=== PATIENT | female | born 1945 | race Caucasian/White ===

== ENCOUNTER 2020-07-11 09:52 | Emergency (ER) | payer MEDICARE, SELFPAY ==
--- NOTE | ~2020-07-11 | XR_ITS ---
EXAMINATION: XR chest 2V EXAM DATE: 07/11/2020 10:50 INDICATION: Confusion. TECHNIQUE: Portable AP frontal chest x-ray was obtained. Comparison is made to prior examination from 06/17/2019. FINDINGS: Chronic hyperinflation. The lungs are clear. There are no pleural effusions. The cardiome diastinal silhouette is within normal limits. There is no pneumothorax suspected. Midthoracic chron ic mild to moderate compression fracture. Severe thoracolumbar scoliosis. Old right rib fractures. Th ere is no significant interval change. IMPRESSION: No acute cardiopulmonary findings. Reviewed, dictated and finalized at location A. DENT SURGEON
[2020-07-11 10:40] LABS: Basophils Absolute Auto 0.02 K/mm3 (0.00-0.10); Basophils Percent Auto 0.3 % (0.0-1.0); Hematocrit 34.1 % (35.0-42.0); Immature Granulocyte Absolute 0.04 K/mm3 (0.00-0.00); Immature Granulocyte Percent A 0.7 % (0.0-0.0); Lymphocytes Absolute Auto 1.17 K/mm3 (1.10-4.50); Lymphocytes Percent Auto 19.9 % (18.0-42.0); Mean Corpuscular HGB Conc 32.3 g/dL (32.0-36.0); Mean Corpuscular Hemoglobin 26.6 pg (27.0-31.0); Mean Corpuscular Volume 82.4 fL (78.0-102.0); Mean Platelet Volume 8.1 fl (9.2-11.8); Monocytes Absolute Auto 0.38 K/mm3 (0.10-0.90); Monocytes Percent Auto 6.5 % (2.0-11.0); Neutrophils Absolute Auto 4.3 K/mm3 (1.7-7.2); Neutrophils Percent Auto 72.6 % (50.0-70.0); Platelet Count Result 311 K/mm3 (150-420); Red Blood Count 4.14 M/mm3 (4.20-5.40); Red Cell Distribution Width 14.7 % (11.6-14.4); White Blood Count 5.9 K/mm3 (4.8-10.8)
[2020-07-11 10:42] LABS: Add Urine Microscopic? YES; Appearance Urine Cloudy (Clear); Bilirubin Urine Negative (Negative); Blood Urine 2+ (Negative); Color Urine Yellow (Yellow); Glucose Urine UA Negative (Negative); Ketones Urine Negative (Negative); Leukocyte Esterase Ur 2+ (Negative); Nitrate Urine Positive (Negative); Protein Urine 2+ (Negative); Specific Grav Ur 1.025 (1.010-1.020); Urobilinogen Urine 0.2 mg/dL (0.2-1.0)
[2020-07-11 10:46] LABS: Bacteria Urine 1+ /hpf; RBC Urine None seen /hpf (0-2); Squamous Epithelial Cell Urine Rare /hpf (Few); WBC Urine >75 /hpf (0-3)
[2020-07-11 10:56] LABS: Alanine Aminotransferase 16 U/L (14-59); Albumin Level 3.6 g/dL (3.4-5.0); Alkaline Phosphatase 88 U/L (46-116); Anion Gap 12 mmol/L (8-16); Aspartate Amino Transferase 20 U/L (15-37); Bilirubin,Total 0.4 mg/dL (0.00-1.00); Blood Urea Nitrogen 17 mg/dL (7-18); Calcium 8.9 mg/dL (8.5-10.1); Carbon Dioxide 25 mmol/L (21-32); Chloride 103 mmol/L (98-108); Estimated Glomerular Filt Rate 56; Glucose 108 mg/dL (70-99); Osmolality Calculated 292 mOsm/kg (285-295); Potassium 3.6 mmol/L (3.5-5.1); Sodium 140 mmol/L (136-145); Total Protein 6.6 g/dL (6.4-8.2)
[2020-07-11 11:17] VITALS: BP 101/60; PULSE 66; RESP 16; TEMP 36.6; O2SAT 94
--- NOTE | 2020-07-11 11:18 | ED.FEMALEGU ---
HPI - Female Genitourinary General Chief complaint: Urogenital-Female Stated complaint: confusion, pain in L side Source: patient and family Mode of arrival: wheelchair History of Present Illness HPI Narrative: this is a 75-year-old female with history of dementia brought in by her daughter and wheelchair after she has been having some urinary tract type symptoms with some dysuria with no hematuria does have history of dementia with history of hypertension. Patient otherwise is afebrile with stable vital signs with no chest pain no shortness of breath no abdominal pain no bladder tenderness no flank pain or tenderness. MD elicited complaint: UTI Severity: mild Related Data Home Medications Medication Instructions Recorded Confirmed amlodipine 10 mg tablet 10 mg PO DAILY 11/12/19 07/11/20 donepezil 10 mg tablet 10 mg PO ONCE 11/12/19 07/11/20 sulfamethoxazole 400 1 tablet PO DAILY 11/12/19 07/11/20 mg-trimethoprim 80 mg tablet valsartan 40 mg tablet 20 mg PO DAILY tablet 05/15/20 07/11/20 Allergies Allergy/AdvReac Type Severity Reaction Status Date / Time No Known Allergies Allergy NA Uncoded 05/15/20 10:56 Review of Systems Review of Systems: All systems reviewed & are unremarkable except as noted in HPI and below PMFSH Past Medical History Medical History (Updated 07/11/20 @ 11:42 by Silvano Lisa MD) Anxiety Depression DVT (deep venous thrombosis) Emphysema of lung History of tobacco use Hyperlipidemia Hypertension Lung nodule Mass of upper lobe of right lung Shortness of Breath Ureteral stone with hydronephrosis Surgical History Surgical History Kidney stones Family History Family History Mother Breast cancer Social History Social History Smoking packs per day: 1 Smoking cigarettes per day: 20.0 Years smoked: 20 Smoking pack-years: 20.00 Smoking status: Former smoker Tobacco type: cigarettes Alcohol intake: unknown Gender identity (if verbalized by the patient): Female Exam Const: General: no acute distress Other: Pleasantly demented HENMT: Head: normal to inspection Eyes: Conjunctivae: conjunctivae normal Pupils: Equal, round and reactive pupils present Direct Ophthalmoscopy: no photophobia Neck: Neck: normal visual inspection, no lymphadenopathy and no meningeal signs Chest: Chest palpation & inspection: normal inspection of the chest Resp: Effort & Inspection: normal respiratory effort Auscultation: clear to auscultation bilaterally Cardio: Rate: regular rate Rhythm: regular rhythm GI: GI Palp: Yes Soft to palpation Auscultation: normal bowel sounds : General: Yes no CVA tenderness Urinary Catheter: Urinary Catheter: patent and draining Neuro: General: moves all extremities, no meningeal signs and no focal motor deficits Extrem: General: normal to inspection Psych: Affect: Anxious affect present Attitude: cooperative Course Course Emergency Course: reassessment of patient, reviewed findings with some family and found to have urinary tract infection, will give her a dose of ceftriaxone and discharge with p.o. antibiotics with follow-up with her primary care physician. MDM - Female Genitourinary Lab Data Result diagrams: 07/11/20 10:35 07/11/20 10:35 Labs: Lab Results 07/11/20 07/11/20 07/11/20 Range/Units 10:35 10:35 10:35 WBC 5.9 (4.8-10.8) K/mm3 RBC 4.14 L (4.20-5.40) M/mm3 Hgb 11.0 L (11.7-13.8) g/dL Hct 34.1 L (35.0-42.0) % MCV 82.4 (78.0-102.0) fL MCH 26.6 L (27.0-31.0) pg MCHC 32.3 (32.0-36.0) g/dL RDW 14.7 H (11.6-14.4) % Plt Count 311 (150-420) K/mm3 MPV 8.1 L (9.2-11.8) fl Immature Gran % (Auto) 0.7 H (0.0-0.0) % Neut % (Auto) 72.6 H (50.0-70.0) %
[2020-07-11] MEDS: cefTRIAXone 1 GM VIAL IM (11:47)
== END 2020-07-11 12:22 | disposition home or self-care (01) ==
PROVIDERS: Emergency Provider Emergency Medicine; PCP Family Medicine
DX: N30.00 Acute cystitis without hematuria (principal); Z86.718 Personal history of other venous thrombosis and embolism; E78.5 Hyperlipidemia, unspecified; I10 Essential (primary) hypertension; Z87.891 Personal history of nicotine dependence
CPT/HCPCS: 36415; 71046; 80053; 81001; 83605; 85025; 87040; 96372; 99283; J0696

== ENCOUNTER 2022-07-13 09:21 | Emergency (ER) | payer MEDICARE, SELFPAY ==
--- NOTE | ~2022-07-13 | XR_ITS ---
EXAMINATION: XR chest 1V portable 07/13/2022 11:01 INDICATION: Multiple falls. Sternal pain. PROCEDURE: AP view of the chest COMPARISON: No prior studies for comparison. FINDINGS: The lungs are clear. The cardiomediastinal silhouette is within normal limits. There are no pleural effusions. There is no pneumothorax suspected. The lungs are hyperinflated which is cons istent with, but not diagnostic of chronic obstructive pulmonary disease. There is levoscoliosis of t he thoracolumbar spine. There is atherosclerosis of the aorta. There are healed right rib fractures. IMPRESSION: 1: NO ACUTE CARDIOPULMONARY DISEASE. Reviewed, dictated and finalized at location A. ER CHECKER
--- NOTE | ~2022-07-13 | CT_ITS ---
EXAMINATION: CT brain wo con DATE: 07/13/2022 11:01 INDICATION: Head injury post multiple falls TECHNIQUE: Computed tomography (CT) of the head was performed without intravenous contrast. Sagittal and coronal reconstructions were performed. The mA was adjusted according to patient size. Iterative reconstruction technique was employed. The dose-length product was 681.00 mGy-cm. COMPARISON: Brain MR dated 06/27/2015 FINDINGS: No fracture. Encephalomalacia in the right occipital lobe consistent with chronic infarct. Additional smaller old lacunar infarcts at the left basal ganglia and subinsular white matter. These are all ne w since the prior study. No acute intracranial hemorrhage, acute infarction or abnormal extra axial f luid collection. There is mild to moderate scattered white matter hypoattenuation consistent with chr onic small vessel ischemic disease. Symmetric prominence of the sulci and ventricles consistent with moderate age-appropriate diffuse cerebral volume loss. No mass/mass effect. Tiny left mastoid effusio n. The orbits and right mastoid air cells are normal. Mild mucosal thickening in the bilateral ethmoi d sinuses and moderate mucosal thickening the left sphenoid sinus. IMPRESSION: 1. No fracture or acute intracranial process. 2. 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 3. Age-related changes including moderate diffuse volume loss and mild to moderate scattered white ma tter hypoattenuation consistent with chronic small vessel ischemic disease. Reviewed, dictated and finalized at location A. TECHNOLOGIST IN CYTOGENETICS IMPRESSION: 1. No fracture or acute intracranial process. 2. 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 3. Age-related changes including moderate diffuse volume loss and mild to moder ate scattered white matter hypoattenuation consistent with chronic small vessel ischemic disease.
--- NOTE | ~2022-07-13 | XR_ITS ---
EXAMINATION: XR pelvis 1-2V DATE: 07/13/2022 11:00 INDICATION: Fall. Pelvis injury. TECHNIQUE: An anteroposterior view of the pelvis was obtained on 2 radiographs. COMPARISON: Pelvis radiograph 08/24/2018 FINDINGS: There is lumbar levoscoliosis and moderate spondylosis. No fracture. There is moderate righ t hip osteoarthritis and mild left hip osteoarthritis. IMPRESSION: 1. Moderate right hip osteoarthritis and mild left hip osteoarthritis. Reviewed, dictated and finalized at location A. E GRINDER
[2022-07-13 09:25] VITALS: BP 136/65; PULSE 77; RESP 20; TEMP 36.9; O2SAT 97
[2022-07-13 09:35] VITALS: BP 136/65; PULSE 82; RESP 18; TEMP 36.9; O2SAT 96
--- NOTE | 2022-07-13 09:39 | ED.FALL ---
HPI - Fall General Chief Complaint: Fall Stated Complaint: fell/chest is sore Time Seen by Provider: 07/13/22 09:38 Source: family Mode of arrival: ambulatory History of Present Illness HPI Narrative: 77-year-old female ex-smoker with a history of dementia, anxiety, arthritis, dyslipidemia, DVT, COPD had recent cataract surgery. She was found -- sitting on the floor on 2 occasions. Unsure whether she fell. no obvious injury noted. -- Denies any complaints. -- Appears very anxious and shaky. -- Has redness of the right eye. denies any pain. Denies dizziness or lightheadedness. No focal neuro deficits. MD complaint: fall Onset (ago): unknown Fall witnessed: no Place fall occurred: home Loss of consciousness: unsure Prolonged down time: unclear Symptoms prior to fall: none Location of injury: other ( ) Related Data Home Medications Medication Instructions Recorded Confirmed amlodipine 10 mg tablet 10 mg PO DAILY 11/12/19 07/13/22 donepezil 10 mg tablet (Aricept) 10 mg PO ONCE 11/12/19 07/13/22 valsartan 40 mg tablet 20 mg PO DAILY 05/15/20 07/13/22 potassium chloride 10 mEq 10 meq PO DAILY 03/24/21 07/13/22 tablet,extended release Allergies Allergy/AdvReac Type Severity Reaction Status Date / Time No Known Allergies Allergy NA Uncoded 07/13/22 09:40 Review of Systems Review of Systems: All systems reviewed & are unremarkable except as noted in HPI and below Constitutional: Constitutional: Reports as per HPI and Reports no additional constitutional complaints Eyes: Eyes: Reports as per HPI and Reports no additional eye complaints ENT: Reports system reviewed and no additional complaints, except as documented and Reports as per HPI Cardiovascular: Cardiovascular: Reports as per HPI and Reports no additional cardiovascular complaints Respiratory: Respiratory: Reports as per HPI and Reports no additional respiratory complaints Gastrointestinal: Gastrointestinal: Reports as per HPI and Reports no additional gastrointestinal complaints Genitourinary: Genitourinary: Reports no additional female genitourinary complaints and Reports as per HPI Musculoskeletal: Musculoskeletal: Reports no additional musculoskeletal complaints and Reports as per HPI Integumentary/Breasts: Skin/Breast: Reports system reviewed and no additional complaints, except as docu Comments: Questionable redness over the forehead. Neurologic: Reports system reviewed and no additional complaints, except as documented and Reports as per HPI Psychiatric: Psychiatric: Reports no additional psychiatric complaints and Reports as per HPI Endocrine: Endocrine: Reports no additional endocrine complaints and Reports as per HPI Hematologic/Lymphatic: Hematologic/Lymphatic: Reports no additional hematologic/lymphatic complaints and Reports as per HPI Allergic/Immunologic: Allergic/Immunologic: Reports no additional allergic/immunologic complaints and Reports as per HPI PMFSH Past Medical History Medical History (Updated 07/13/22 @ 11:26 by Josemanuel Soriano MD) Anxiety Depression DVT (deep venous thrombosis) Emphysema of lung History of tobacco use Hyperlipidemia Hypertension Lung nodule Mass of upper lobe of right lung Shortness of Breath Ureteral stone with hydronephrosis Surgical History Surgical History Kidney stones Family History Family History Mother Breast cancer Social History Social History Smoking packs per day: 1 Smoking cigarettes per day: 20.0 Years smoked: 20 Smoking pack-years: 20.00 Smoking status: Former smoker Tobacco type: cigarettes Alcohol intake: unknown Gender identity (if verbalized by the patient): Female Exam Const: General: no acute distress Nutritional Appearance: thin HENMT: Head: normal
--- NOTE | 2022-07-13 09:58 | ECG_ITS ---
Measurements Intervals [place] Rate: 72 P: 72 [place]: 126 QRS: -42 QRSD: 98 T: 70 QT: 389 QTc: 428 Interpretive Statements SINUS RHYTHM LEFT AXIS DEVIATION DELAYED PRECORDIAL R/S TRANSITION BORDERLINE ST-T WAVE ABNORMALITY- HIGH LATERAL LEADS BASELINE ARTIFACT- II, III, AVR, AVL, AVF BORDERLINE ECG NO PREVIOUS ECG AVAILABLE FOR COMPARISON Electronically Signed On 07-13-2022 12:05:43 PRODUCT PROMOTER SALES PERSON by Robi Sprague D.O.
[2022-07-13 10:13] LABS: Basophils Absolute Auto 0.01 K/mm3 (0.00-0.10); Basophils Percent Auto 0.1 % (0.0-1.0); Hematocrit 34.8 % (35.0-42.0); Hemoglobin 11.3 g/dL (11.7-13.8); Immature Granulocyte Absolute 0.04 K/mm3 (0.00-0.00); Immature Granulocyte Percent A 0.5 % (0.0-0.0); Lymphocytes Absolute Auto 0.76 K/mm3 (1.10-4.50); Lymphocytes Percent Auto 9.7 % (18.0-42.0); Mean Corpuscular HGB Conc 32.5 g/dL (32.0-36.0); Mean Corpuscular Hemoglobin 27.6 pg (27.0-31.0); Mean Corpuscular Volume 84.9 fL (78.0-102.0); Mean Platelet Volume 8.8 fl (9.2-11.8); Monocytes Absolute Auto 0.43 K/mm3 (0.10-0.90); Monocytes Percent Auto 5.5 % (2.0-11.0); Neutrophils Absolute Auto 6.6 K/mm3 (1.7-7.2); Neutrophils Percent Auto 84.2 % (50.0-70.0); Platelet Count Result 270 K/mm3 (150-420); Red Cell Distribution Width 13.3 % (11.6-14.4); White Blood Count 7.9 K/mm3 (4.8-10.8)
[2022-07-13 10:28] LABS: Partial Thromboplastin Time 23.9 SEC (23.90-30.70); Prothrombin Time 11.2 Seconds (9.50-12.10)
[2022-07-13 10:37] LABS: Alanine Aminotransferase 22 U/L (14-59); Albumin Level 3.3 g/dL (3.4-5.0); Alkaline Phosphatase 80 U/L (46-116); Anion Gap 10 mmol/L (8-16); Aspartate Amino Transferase 45 U/L (15-37); Bilirubin,Total 0.7 mg/dL (0.00-1.00); Blood Urea Nitrogen 18 mg/dL (7-18); Calcium 9.1 mg/dL (8.5-10.1); Carbon Dioxide 27 mmol/L (21-32); Chloride 107 mmol/L (98-108); Estimated CRCL calculation 32 ml/min; Estimated Glomerular Filt Rate > 60; Glucose 99 mg/dL (70-99); Lactic Acid Reflex 1.8 mmol/L (0.4-2.0); NT Pro B Type Natriuretic Pept 182 pg/mL (0-450); Osmolality Calculated 299 mOsm/kg (285-295); Potassium 3.9 mmol/L (3.5-5.1); Sodium 144 mmol/L (136-145); Thyroid Stimulating Hormone 1.07 uIU/mL (0.36-3.74); Total Protein 6.1 g/dL (6.4-8.2); Troponin I 9.3 ng/L (0.00-60.4)
[2022-07-13 11:15] LABS: Appearance Urine Slightly Cloudy (Clear); Bilirubin Urine Negative (Negative); Blood Urine 3+ (Negative); Glucose Urine UA Negative (Negative); Ketones Urine Trace (Negative); Leukocyte Esterase Ur 3+ (Negative); Nitrate Urine Negative (Negative); Protein Urine 2+ (Negative); Urobilinogen Urine 0.2 mg/dL (0.2-1.0)
[2022-07-13 11:20] LABS: Add Urine Microscopic? YES; Color Urine Light Yellow (Yellow)
[2022-07-13 11:21] LABS: Bacteria Urine 1+ /hpf; Squamous Epithelial Cell Urine Rare /hpf (Few); WBC Urine 51-75 /hpf (0-3)
[2022-07-13 11:38] VITALS: BP 131/74; PULSE 78; RESP 16; TEMP 36.9; O2SAT 97
[2022-07-13] MEDS: AMOXICILLIN/CLAVULANATE K 500-125 MG TAB 1 TABLET PO (11:52)
== END 2022-07-13 11:53 | disposition home or self-care (01) ==
PROVIDERS: Emergency Provider Internal Medicine Critical Care Medicine; PCP Family Medicine
DX: R41.82 Altered mental status, unspecified (principal); N39.0 Urinary tract infection, site not specified; Z86.718 Personal history of other venous thrombosis and embolism; E78.5 Hyperlipidemia, unspecified; I10 Essential (primary) hypertension; Z87.891 Personal history of nicotine dependence
CPT/HCPCS: 36415; 70450; 71045; 72170; 80053; 81001; 83605; 83880; 84443; 84484; 85025; 85610; 85730; 93005; 99284; A9270

== ENCOUNTER 2022-10-27 16:08 | Outpatient (CLI) | payer MEDICARE, SELFPAY | END 2022-10-27 16:09 | disposition home or self-care (01) | LOC: CHSLAB 16:10 | PROVIDERS: PCP Family Medicine; Visit Provider Family Medicine | DX: N39.0 Urinary tract infection, site not specified (principal) | CPT/HCPCS: 87077; 87086; 87088; 87186 ==

== ENCOUNTER 2023-08-29 18:25 | Inpatient (IN) | payer OTHER, SELFPAY ==
[2023-08-29] VITALS (17 sets, daily range): BP systolic 96–132; BP diastolic 44–58; PULSE 86–120; RESP 14–32; TEMP 36.7; O2SAT 90–94
--- NOTE | ~2023-08-29 | XR_ITS ---
EXAMINATION: XR chest 2V Exam Date/Time: 08/29/2023 21:40 WIRE COATER HISTORY: cough. weakness Comparison: 07/13/2022, 07/11/2020. RESULT: Lines, tubes, and devices: None. Lungs and pleura: Hazy groundglass opacity in the right upper lung. Segmental airspace disease in the left lung base. Moderate diffuse interstitial opacities. Senescent/emphysematous change. Cardiomediastinal silhouette: Stable. Other: No acute osseous or upper abdominal finding. Stable mid thoracic compression deformities. IMPRESSION: Moderate interstitial edema. Groundglass opacity in the right upper lung may represent infection or e ryan. Atelectasis, consolidation, or aspiration in the left lung base. Reviewed, dictated and finalized at location K. COATER IMPRESSION: Moderate interstitial edema. Groundglass opacity in the right upper lung may re present infection or edema. Atelectasis, consolidation, or aspiration in the le ft lung base.
--- NOTE | 2023-08-29 19:44 | ECG_ITS ---
Measurements Intervals [place] Rate: 96 P: 69 [place]: 152 QRS: -28 QRSD: 88 T: 56 QT: 309 QTc: 391 Interpretive Statements SINUS RHYTHM CANNOT RULE OUT SEPTAL INFARCT, AGE INDETERMINATE BORDERLINE ST-T WAVE ABNORMALITY- ANTEROLAT/HIGH LAT LEADS BASELINE ARTIFACT- I, II, III, AVR, AVL, AVF, V1-V6 ABNORMAL ECG COMPARED TO ECG 07/13/2022 10:22:02 NO SIGNIFICANT CHANGES Electronically Signed On 08-30-2023 5:23:45 ANESTHESIA TECHNICIAN by Robi Sprague D.O.
[2023-08-29 21:29] LABS: Basophils Percent Auto 0.2 % (0.2-1.2); Hematocrit 27.9 % (37.0-47.0); Hemoglobin 8.1 g/dL (12.0-15.0); Immature Granulocyte Absolute 0.06 K/mm3 (0.00-0.031); Immature Granulocyte Percent A 0.4 % (0-0.5); Lymphocytes Absolute Auto 0.82 K/mm3 (0.9-3.2); Lymphocytes Percent Auto 5.6 % (18.3-44.2); Mean Corpuscular Hemoglobin 23.6 pg (26-34); Mean Corpuscular Volume 81.3 fl (80-100); Monocytes Absolute Auto 0.7 K/mm3 (0.1-0.6); Neutrophils Absolute Auto 13.1 K/mm3 (1.3-6.7); Neutrophils Percent Auto 88.8 % (45.5-73.1); Platelet Count Result 571 k/mm3 (150-375); Red Blood Count 3.43 M/mm3 (4.2-5.4); Red Cell Distribution Width 15.7 % (11.5-14.5); White Blood Count 14.8 K/mm3 (4.5-10.0)
[2023-08-29 21:39] LABS: Alanine Aminotransferase 18 U/L (6-35); Albumin Level 3.3 g/dL (3.5-5.1); Alkaline Phosphatase 91 U/L (38-126); Anion Gap 11 mmol/L (8-16); Aspartate Amino Transferase 24 U/L (14-36); Bilirubin,Total 0.6 mg/dL (0.2-1.3); Blood Urea Nitrogen 19 mg/dL (7-17); Calcium 8.9 mg/dL (8.4-10.2); Carbon Dioxide 24 mmol/L (22-30); Chloride 99 mmol/L (98-107); Estimated CRCL calculation 35 ml/min; Estimated Glomerular Filt Rate > 60; Glucose 143 mg/dL (65-110); Potassium 3.8 mmol/L (3.4-5.0); Sodium 134 mmol/L (137-145)
[2023-08-29 21:44] LABS: Hypochromasia 1+ (NORMAL); Ovalocytes 1+ (NORMAL); Platelet Estimate Increased (Adequate); Schistocytes None Seen (NORMAL)
[2023-08-29 22:00] LABS: Magnesium 1.9 mg/dL (1.6-2.3)
[2023-08-29] MEDS: SODIUM CHLORIDE 0.9% IV 1,000 ML 999 ML IV CONT (22:04)
[2023-08-29 22:05] LABS: INR 1.1; Prothrombin Time 14.9 Seconds (11.1-14.7)
[2023-08-29 22:06] LABS: Partial Thromboplastin Time 28.2 SECONDS (22.3-36.8)
[2023-08-29 22:10] LABS: Troponin I < 0.012 ng/mL (0.000-0.034)
[2023-08-29 22:11] LABS: Lactic Acid Reflex 1.9 mmol/L (0.7-2.0)
[2023-08-29 22:16] LABS: Appearance Urine Turbid (Clear); Bilirubin Urine Negative (Negative); Blood Urine 2+ (Negative); Color Urine Yellow (Yellow); Glucose Urine UA Negative (Negative); Ketones Urine Trace mg/dL (Negative); Leukocyte Esterase Ur 3+ LEU/UL (Negative); Nitrate Urine Positive (Negative); Protein Urine 2+ mg/dL (Negative); Specific Grav Ur 1.017 (1.001-1.035); pH Urine 5.5 (5.0-9.0)
[2023-08-29 22:19] LABS: Procalcitonin 0.2 ng/mL
[2023-08-29 22:27] LABS: Add Urine Microscopic? YES
[2023-08-29 22:28] LABS: Bacteria Urine 3+ /hpf; Squamous Epithelial Cell Urine Few /hpf (Few); WBC Urine >100 /hpf (0-3)
[2023-08-29 22:47] LABS: Influenza A QL RT-PCR Negative (Negative); Influenza B QL RT-PCR Negative (Negative); RSV RNA, RT-PCR Positive (Negative); SARS-CoV-2 RNA PCR Negative (Negative)
[2023-08-30] VITALS (16 sets, daily range): BP systolic 110–135; BP diastolic 45–85; PULSE 85–104; RESP 16–29; TEMP 36.2–37; O2SAT 90–95; BMI 14.1
--- NOTE | 2023-08-30 00:23 | ED.GENADULT ---
HPI - General Adult General Chief complaint: Unspecified Stated complaint: not eating Time Seen by Provider: 08/29/23 21:27 History of Present Illness HPI narrative: Patient is a 78-year-old female who presents emergency department with chief complaint of generalized weakness decreased p.o. intake. Family reports last 1-2 weeks she has been having cough the family had recently had COVID patient reports that he she does feels very weak and the family has noticed that she is more confused than normal. Related Data Home Medications Medication Instructions Recorded Confirmed amlodipine 10 mg tablet 10 mg PO DAILY 11/12/19 09/30/22 donepezil 10 mg tablet (Aricept) 10 mg PO ONCE 11/12/19 09/30/22 valsartan 40 mg tablet 20 mg PO DAILY 05/15/20 09/30/22 potassium chloride 10 mEq 10 meq PO DAILY 03/24/21 09/30/22 tablet,extended release Allergies Allergy/AdvReac Type Severity Reaction Status Date / Time No Known Allergies Allergy NA Uncoded 08/29/23 18:26 Review of Systems Review of Systems: A 10 system review of systems was completed on the patient and is negative except for what is stated in the HPI. Nursing and ancillary documentation was reviewed. [facility] Past Medical History Medical History (Updated 08/30/23 @ 00:27 by Juan Antonio Sheriadn MD) Anxiety Depression DVT (deep venous thrombosis) Emphysema of lung History of tobacco use Hyperlipidemia Hypertension Lung nodule Mass of upper lobe of right lung Shortness of Breath Ureteral stone with hydronephrosis Surgical History Surgical History Kidney stones Family History Family History Mother Breast cancer Social History Social History Smoking packs per day: 1 Smoking cigarettes per day: 20.0 Years smoked: 20 Smoking pack-years: 20.00 Smoking status: Former smoker Tobacco type: cigarettes Second hand tobacco smoke exposure: Yes Smoking end date: 08/21/89 Alcohol intake: former Living arrangements: alone Gender identity (if verbalized by the patient): Female Exam Narrative: GENERAL: Well-appearing, well-nourished, and in no acute distress. HEAD: Normocephalic, atraumatic. EYES: PERRLA and EOMI. ENT: Nares clear, no rhinorrhea or epistaxis. Mucous membranes moist. NECK: Supple. CHEST: Clear to auscultation. No respiratory distress. HEART: Regular rate and rhythm. No murmur heard. Normal peripheral pulses. ABDOMEN: Soft, nontender, nondistended, normal active bowel sounds. EXTREMITIES: Normal range of motion. No edema. SKIN: Warm, dry, no rash. NEURO: No focal deficits. Alert and oriented x1. PSYCH: Normal mood and affect. Course Vital Signs Vital signs: Vital Signs Temperature 36.7 C 08/29/23 19:05 Pulse Rate 120 H 08/29/23 19:05 Respiratory Rate 24 H 08/29/23 19:05 Blood Pressure 96/44 L 08/29/23 19:05 Pulse Oximetry 92 08/29/23 19:05 Oxygen Delivery Room Air 08/29/23 19:05 Temperature 36.7 C 08/29/23 19:05 Pulse Rate 93 08/29/23 23:31 Respiratory Rate 21 H 08/29/23 23:31 Blood Pressure 123/57 L 08/29/23 23:31 Pulse Oximetry 92 08/29/23 23:31 Oxygen Delivery Room Air 08/29/23 21:59 Medical Decision Making [facility] Narrative Medical decision making narrative: Differential diagnosis includes pneumonia, COVID, RSV, influenza, UTI, dehydration, electrolyte abnormality Patient received fluid resuscitation in the emergency department. Laboratory studies were obtained which showed a white count of 14.8 urinalysis was turbid with greater than 100 white blood cells in the urine patient was positive for RSV chest x-ray showed interstitial infiltrates The patient was started on Rocephin and Zithromax blood cultures were obtained the patient was hydrated in the emerge
--- NOTE | 2023-08-30 01:38 | ADMGEN ---
This patient, Angie Briggs, was admitted to Medical Room 343-01. Patient/family oriented to hospital policies and general routines including ID bracelet, bed and alarms, visiting hours, pain management, procedures, bathroom and other care routines, personal items, smoking policy, room service/diet, and visiting hours. Information on how to activate the Rapid Response Team has been discussed. Patient/Family are encouraged to report perceived risks to care and to ask questions if they do not understand what they are told or what they should do.
[2023-08-30] MEDS: AZITHROMYCIN 500 MG/NS 250 ML 500 MG/250 ML BAG 250 MG IVPB ×2 (01:57→20:55)
[2023-08-30] MEDS: SODIUM CHLORIDE 0.9% IV 1,000 ML 125 ML IV CONT ×2 (01:57→12:27)
[2023-08-30] MEDS: ACETAMINOPHEN 325 MG TABLET 650 MG PO ×2 (02:01→20:56)
[2023-08-30 04:56] LABS: Troponin I < 0.012 ng/mL (0.000-0.034)
--- NOTE | 2023-08-30 11:52 | PM.IMHP ---
H&P: HPI History of Present Illness Date/Time: 08/30/23 11:52 Chief Complaint: Cough and shortness of breath Narrative: Patient is 78-year-old female who presented to the hospital complaining of generalized weakness poor intake patient states she has been coughing for the last few days. Patient recently had COVID as reported by the family and been feeling weak since then. Patient got more confused in the last few days and was not eating the patient her to the emergency room for further evaluation. In the emergency room she was noted to have evidence of positive Review of Systems Review of Systems: No fevers chills nausea vomiting. No double vision no blurry vision. No chest pain shortness of breath fever coughing wheezing chills. No nausea constipation diarrhea abdominal pain reflux. No urgency frequency of urination. No hematuria. No skin rash eczema. No anxiety depression difficulty sleeping. No bleeding gums enlarged glands. No muscle ache back pain joint stiffness. No loss of strength numbness headache tremor or loss of memory. [facility] Past Medical History Medical History (Updated 08/30/23 @ 12:10 by Patrick Martinez MD) Anxiety Depression DVT (deep venous thrombosis) Emphysema of lung History of tobacco use Hyperlipidemia Hypertension Lung nodule Mass of upper lobe of right lung Shortness of Breath Ureteral stone with hydronephrosis Surgical History Surgical History Kidney stones Family History Family History Mother Breast cancer Social History Social History Smoking packs per day: 1 Smoking cigarettes per day: 20.0 Years smoked: 20 Smoking pack-years: 20.00 Smoking status: Former smoker Tobacco type: cigarettes Second hand tobacco smoke exposure: Yes Smoking end date: 08/21/89 Alcohol intake: former Substance use: never Do You Feel Safe in your Home?: Yes Lack of Transportation: No Lack of Food: Never True Current Housing: I Have Housing Concerned About Future Housing: No Difficulty Paying Gas/Electric Bills: No Difficulty Paying for Meds: No Currently Unemployed: No Education: High School Diploma/GED Difficulty w/ Childcare or Family Care: No Living arrangements: alone Gender identity (if verbalized by the patient): Female Spiritual care concerns: No Meds Home Medications and Allergies Home Medications Medication Instructions Recorded Confirmed Type amlodipine 10 mg tablet 10 mg PO DAILY 11/12/19 08/30/23 History donepezil 10 mg tablet (Aricept) 10 mg PO ONCE 11/12/19 08/30/23 History albuterol sulfate 2.5 mg/3 mL 2.5 mg (3 mL) inhalation Q4-6H PRN 05/27/20 08/30/23 Rx (0.083 %) solution for nebulization shortness of breath or wheezing #180 mL potassium chloride 10 mEq 10 meq PO DAILY 03/24/21 08/30/23 History tablet,extended release albuterol sulfate 90 mcg/actuation 1 - 2 puff inhalation Q4-6H PRN 04/06/22 08/30/23 Rx aerosol inhaler shortness of breath or wheezing #8.5 grams arformoterol 15 mcg/2 mL solution 2 ml inhalation BID COPD #120 mL 12/23/22 08/30/23 Rx for nebulization (Brovana) aspirin 81 mg chewable tablet 81 mg PO DAILY 08/30/23 08/30/23 History atorvastatin 20 mg tablet 20 mg PO DAILY 08/30/23 08/30/23 History cholecalciferol (vitamin D3) 125 125 mcg PO DAILY 08/30/23 08/30/23 History mcg (5,000 unit) capsule diphenhydramine HCl 25 mg capsule 25 mg PO HS 08/30/23 08/30/23 History (Banophen) telmisartan 20 mg tablet 20 mg PO DAILY 08/30/23 08/30/23 History Allergies Allergy/AdvReac Type Severity Reaction Status Date / Time nitrofurantoin AdvReac Agitated Verified 08/30/23 02:19 [From Macrobid] Vital Signs Vital Signs - 24 hr 08/29/23 19:05 08/29/23 21:59
[2023-08-30 12:19] LABS: Basophils Percent Auto 0.4 % (0.2-1.2); Eosinophils Percent Auto 0.2 % (0-4.4); Hematocrit 23.9 % (37.0-47.0); Immature Granulocyte Absolute 0.05 K/mm3 (0.00-0.031); Immature Granulocyte Percent A 0.6 % (0-0.5); Lymphocytes Absolute Auto 0.98 K/mm3 (0.9-3.2); Lymphocytes Percent Auto 11.5 % (18.3-44.2); Mean Corpuscular HGB Conc 27.6 g/dl (32-36); Mean Corpuscular Hemoglobin 23.4 pg (26-34); Mean Corpuscular Volume 84.8 fl (80-100); Mean Platelet Volume 9.5 fl (7.4-10.4); Monocytes Absolute Auto 0.6 K/mm3 (0.1-0.6); Monocytes Percent Auto 7.5 % (2.6-8.5); Neutrophils Absolute Auto 6.8 K/mm3 (1.3-6.7); Neutrophils Percent Auto 79.8 % (45.5-73.1); Platelet Count Result 463 k/mm3 (150-375); Red Blood Count 2.82 M/mm3 (4.2-5.4); Red Cell Distribution Width 15.6 % (11.5-14.5); White Blood Count 8.6 K/mm3 (4.5-10.0)
[2023-08-30] MEDS: DONEPEZIL HCL 10 MG TABLET PO (12:38)
[2023-08-30] MEDS: methylPREDNISolone SOD SUCC 125 MG VIAL 60 MG IV PUSH (12:38)
[2023-08-30 13:09] LABS: Platelet Estimate Increased (Adequate)
[2023-08-30 13:10] LABS: Hemoglobin 6.6 g/dL (12.0-15.0)
[2023-08-30 13:11] LABS: Hypochromasia 2+ (NORMAL)
[2023-08-30 13:12] LABS: Anisocytosis 1+ (NORMAL)
[2023-08-30 13:14] LABS: Schistocytes None Seen (NORMAL)
[2023-08-30 16:55] LABS: Hematocrit 25.9 % (37.0-47.0); Hemoglobin 7.4 g/dL (12.0-15.0)
[2023-08-31 05:59] LABS: Hematocrit 24.9 % (37.0-47.0); Hemoglobin 7.3 g/dL (12.0-15.0); Immature Granulocyte Absolute 0.03 K/mm3 (0.00-0.031); Immature Granulocyte Percent A 0.7 % (0-0.5); Lymphocytes Absolute Auto 0.76 K/mm3 (0.9-3.2); Lymphocytes Percent Auto 17.9 % (18.3-44.2); Mean Corpuscular HGB Conc 29.3 g/dl (32-36); Mean Corpuscular Hemoglobin 23.5 pg (26-34); Mean Corpuscular Volume 80.3 fl (80-100); Mean Platelet Volume 8.9 fl (7.4-10.4); Monocytes Absolute Auto 0.2 K/mm3 (0.1-0.6); Monocytes Percent Auto 4.2 % (2.6-8.5); Neutrophils Absolute Auto 3.3 K/mm3 (1.3-6.7); Neutrophils Percent Auto 77.2 % (45.5-73.1); Platelet Count Result 502 k/mm3 (150-375); Red Cell Distribution Width 15.1 % (11.5-14.5); White Blood Count 4.3 K/mm3 (4.5-10.0)
[2023-08-31 06:00] VITALS: BP 140/48; PULSE 68; RESP 18; TEMP 36.2; O2SAT 96
[2023-08-31 06:36] LABS: Anisocytosis 1+ (NORMAL); Hypochromasia 2+ (NORMAL); Microcytosis 1+ (NORMAL); Platelet Estimate Increased (Adequate); Schistocytes Rare (NORMAL)
[2023-08-31] MEDS: ASPIRIN 81 MG CHEWABLE TABLET PO (08:18)
[2023-08-31] MEDS: POTASSIUM CHLORIDE 10 MEQ ER TABLET PO (08:19)
[2023-08-31] MEDS: amLODIPine BESYLATE 5 MG TABLET 10 MG PO (08:19)
[2023-08-31] MEDS: TELMISARTAN 20 MG TABLET PO (08:19)
[2023-08-31] MEDS: ATORVASTATIN 20 MG TABLET PO (08:19)
[2023-08-31 10:59] LABS: Hemoglobin 7.4 g/dL (12.0-15.0)
--- NOTE | 2023-08-31 12:30 | PM.IMPN ---
Progress Note: A&P Assessment and Plan (1) Acute respiratory failure with hypoxemia: Code(s): J96.01 - Acute respiratory failure with hypoxia Status: Acute (2) RSV infection: Code(s): B33.8 - Other specified viral diseases Status: Acute (3) History of tobacco use: Code(s): Z87.891 - Personal history of nicotine dependence Status: Acute (4) Anemia: Qualifiers: Iron deficiency anemia type: chronic blood loss Code(s): D64.9 - Anemia, unspecified Status: Acute Plan IV fluid resuscitation Repeat CBC CMP Two sets of Blood cultures urine cultures C-reactive protein, procalcitonin level. CXR reviewed Monitor albumin' Monitoring of mental status. Solitary pulmonary nodule will require follow-up as an outpatient CT in 6 months IV antibiotics?Rocephin and Zithromax patient advice to quit smoking. Bronchodilators.? Solu-Medrol Pneumoniae and flu vaccines as advised Pulmonary rehab if indicated. Evaluation for home O2 if saturations less than 88% on room air Follow-up with primary care and fax machine repairer routine ANEMIA Monitor H&H.? 7.12/14 stable Discontinued lovenox Anemia of chronic disease UTI Urine cultures and sensitivity. Pending Continue IV hydration. Monitor CBC CMP monitor for sepsis. Monitor vital signs On antibiotics DVT prophylaxis. SCDs Lovenox discontinued GI prophylaxis. Protonix All records reviewed Discussed plan of care with the nursing staff and with the patient in detail. Answered all questions and concerns from the patient. All labs have been reviewed. Code status updated dictation may have been done utilizing a voice recognition system. Attempts have been made to correct errors. However, there may be uncorrected grammatical, spelling, and recognition errors present. Subjective Date/time seen: 08/31/23 12:30 Interval history: Patient stated he complains still has some weakness Review of Systems Review of Systems: All systems reviewed & are unremarkable except as noted in HPI and below Exam Narrative: GENERAL: Well appearing, no acute distress. HEAD: Normocephalic, atraumatic. NECK: Supple. No adenopathy, no masses. RESPIRATORY: respirations nonlabored. , no rales, wheezing. CARDIOVASCULAR: Regular rate and rhythm without murmurs, . Peripheral pulses 2+ and equal bilaterally. ABDOMINAL: Soft, nontender, nondistended, no hepatosplenomegaly. Normoactive BS. MUSCULOSKELETAL: no Epigastric and no hypochondrial tenderness SKIN: Warm, dry, NEURO: A&O X3. Moves all extremities Objective Data Vital Signs Vital Signs: Vital Signs - 24 hr 08/30/23 14:43 08/30/23 19:40 08/30/23 21:16 Temperature 36.4 C L 36.2 C L Pulse Rate 86 90 Respiratory Rate 16 16 Blood Pressure 117/52 L 130/54 L Pulse Oximetry 90 93 Oxygen Delivery Room Air 08/31/23 06:00 08/31/23 08:00 Temperature 36.2 C L Pulse Rate 68 Respiratory Rate 18 Blood Pressure 140/48 L Pulse Oximetry 96 Oxygen Delivery Room Air Intake/Output Intake/Output: Intake & Output 08/28/23 08/29/23 08/30/23 08/31/23 23:59 23:59 23:59 23:59 Intake Total 1000 2019 300 Balance 1000 2019 300 Meds/Results Medications: Active Medications Generic Name Dose Route Start Last Admin Trade Name Freq PRN Reason Stop Dose Admin Acetaminophen 650 mg 08/30/23 00:28 08/30/23 20:56 Acetaminophen 325 Mg Tablet PO 650 mg Q4H PRN Administration Mild Pain (1-3) or Fever Acetaminophen 650 mg 08/30/23 12:01 Acetaminophen 325 Mg Tablet PO Q4H PRN Mild Pain (1-3) or Fever Albuterol 2.5 mg 08/30/23 12:05 Albuterol Sulfate Neb 2.5 Mg/3 Ml Inh INHALATION Q6HRT PRN Shortness Of Breath Amlodipine Besylate 10 mg 08/31/23 09:00 08/31/23 08:19 Amlodipine Besylate 5 Mg Tablet PO 10 mg DAILY JOLEEN Administration Aspirin 81 mg 08/31/23 09:00 08/31/23 08:18 Aspirin 81 Mg Chewable Tablet P
--- NOTE | 2023-08-31 13:29 | P.CDI_ITS ---
Severe protein calorie malnutrition CDI Query Clarification Request BMI 14.1 Nutritional Diagnostic Statement Severe Protein Calorie Malnutrition as related to inadequate protein-energy intake with increased protein-energy needs in the setting of chronic disease (COPD) as evidenced by <75% of EER for greater than 1 month and weight loss of 18% or (18lbs) in 6 weeks. Please refer to the comprehensive nutrition assessment for further information. Please clarify severity of protein calorie malnutrition if known: * Mild * Moderate * Severe * Other/Unspecified
[2023-08-31 14:00] VITALS: BP 131/51; PULSE 76; RESP 16; TEMP 36.9; O2SAT 100
--- NOTE | 2023-08-31 14:37 | PCPTNOTE ---
Attempted PT evaluation this date but pt declined stating that she wanted to just stay in bed. Will continue to attempt.
[2023-08-31] MEDS: AZITHROMYCIN 500 MG/NS 250 ML 500 MG/250 ML BAG 250 MG IVPB (21:32)
[2023-08-31 22:13] VITALS: BP 115/54; PULSE 76; RESP 18; TEMP 36.6; O2SAT 92
[2023-09-01 05:10] VITALS: BP 106/58; PULSE 80; RESP 16; TEMP 36.6; O2SAT 97
--- NOTE | 2023-09-01 08:39 | PCPTNOTE ---
attempted evaluation, pt waved her hand for therapist to leave and shut her eyes after she was asked to participate in physical therapy, will continue to follow
[2023-09-01] MEDS: amLODIPine BESYLATE 5 MG TABLET 10 MG PO (08:59)
[2023-09-01] MEDS: POTASSIUM CHLORIDE 10 MEQ ER TABLET PO (08:59)
[2023-09-01] MEDS: TELMISARTAN 20 MG TABLET PO (09:00)
[2023-09-01] MEDS: ATORVASTATIN 20 MG TABLET PO (09:00)
[2023-09-01] MEDS: ASPIRIN 81 MG CHEWABLE TABLET PO (09:00)
[2023-09-01 09:06] LABS: Hematocrit 27.8 % (37.0-47.0); Mean Corpuscular HGB Conc 28.8 g/dl (32-36); Mean Corpuscular Hemoglobin 23.7 pg (26-34); Mean Corpuscular Volume 82.5 fl (80-100); Mean Platelet Volume 8.9 fl (7.4-10.4); Platelet Count Result 580 k/mm3 (150-375); Red Blood Count 3.37 M/mm3 (4.2-5.4); White Blood Count 7.9 K/mm3 (4.5-10.0)
[2023-09-01 09:22] LABS: Alanine Aminotransferase 14 U/L (6-35); Alkaline Phosphatase 79 U/L (38-126); Anion Gap 7 mmol/L (8-16); Aspartate Amino Transferase 23 U/L (14-36); Bilirubin,Total 0.2 mg/dL (0.2-1.3); Blood Urea Nitrogen 12 mg/dL (7-17); Calcium 8.5 mg/dL (8.4-10.2); Carbon Dioxide 28 mmol/L (22-30); Chloride 104 mmol/L (98-107); Estimated CRCL calculation 41 ml/min; Estimated Glomerular Filt Rate > 60; Glucose 80 mg/dL (65-110); Potassium 3.3 mmol/L (3.4-5.0); Sodium 139 mmol/L (137-145)
--- NOTE | 2023-09-01 10:50 | PCNFU ---
Nutrition Follow-Up Complete: Severe Protein Calorie Malnutrition as related to inadequate protein-energy intake with increased protein-energy needs in setting of chronic disease (COPD) as evidenced by < 75% of EER for greater than 1 month and weight loss of 18% or (18 ibs) in 6 weeks. Goal: Adequate Intake of at least 75% of meals/supplements Patient has limited progress towards goal. We will continue current goal. Pt current nutrition is Regular. Nutrition recommendation: change diet supplement from ensure compact to ensure enlive. Last recorded weight is 35 kg. Bowel Motility:+Bm reported 09/01 Labs Reviewed:Hct 26.0.Hgb 7.4 Meds Noted: Lipitor, Zithromax, Rocephin Skin: WNL Additional Notes: Patient remains on a regular diet-eating bites but will drink liquids. She is drinking ensure supplements. Recommend changing ensure to enlive BID providing 350 kcals and 20 gms protein. PO intake encouraged. RD will monitor weight, labs, skin, meds, oral intake every 3 days.
--- NOTE | 2023-09-01 11:56 | PM.IMPN ---
Progress Note: A&P Assessment and Plan (1) Acute respiratory failure with hypoxemia: Code(s): J96.01 - Acute respiratory failure with hypoxia Status: Acute (2) RSV infection: Code(s): B33.8 - Other specified viral diseases Status: Acute (3) History of tobacco use: Code(s): Z87.891 - Personal history of nicotine dependence Status: Acute (4) Anemia: Qualifiers: Iron deficiency anemia type: chronic blood loss Code(s): D64.9 - Anemia, unspecified Status: Acute Plan IV fluid resuscitation Repeat CBC CMP CXR reviewed Solitary pulmonary nodule will require follow-up as an outpatient CT in 6 months patient advice to quit smoking. Bronchodilators.? Solu-Medrol Pneumoniae and flu vaccines as advised Pulmonary rehab if indicated. Evaluation for home O2 if saturations less than 88% on room air Follow-up with primary care and exerciser horse routine ANEMIA Monitor H&H.? 8.0/28.8 stable Discontinued lovenox Anemia of chronic disease Hypokalemia 3.3 replaced on KCl UTI Urine cultures and sensitivity. E coli sensitive to Macrobid Continue IV hydration. Monitor CBC CMP monitor for sepsis. Monitor vital signs On antibiotics client services administrator consult for placement DVT prophylaxis. SCDs Lovenox discontinued GI prophylaxis. Protonix All records reviewed Discussed plan of care with the nursing staff and with the patient in detail. Answered all questions and concerns from the patient. All labs have been reviewed. Code status updated dictation may have been done utilizing a voice recognition system. Attempts have been made to correct errors. However, there may be uncorrected grammatical, spelling, and recognition errors present. Subjective Date/time seen: 09/01/23 11:56 Interval history: Patient stated he complains still has some weakness Review of Systems Review of Systems: All systems reviewed & are unremarkable except as noted in HPI and below Exam Narrative: GENERAL: Well appearing, no acute distress. HEAD: Normocephalic, atraumatic. NECK: Supple. No adenopathy, no masses. RESPIRATORY: respirations nonlabored. , no rales, wheezing. CARDIOVASCULAR: Regular rate and rhythm without murmurs, . Peripheral pulses 2+ and equal bilaterally. ABDOMINAL: Soft, nontender, nondistended, no hepatosplenomegaly. Normoactive BS. MUSCULOSKELETAL: no Epigastric and no hypochondrial tenderness SKIN: Warm, dry, NEURO: A&O X3. Moves all extremities Objective Data Vital Signs Vital Signs: Vital Signs - 24 hr 08/31/23 14:00 08/31/23 22:13 09/01/23 05:10 Temperature 36.9 C 36.6 C 36.6 C Pulse Rate 76 76 80 Respiratory Rate 16 18 16 Blood Pressure 131/51 L 115/54 L 106/58 L Pulse Oximetry 100 92 97 Oxygen Delivery 09/01/23 09:08 Temperature Pulse Rate Respiratory Rate Blood Pressure Pulse Oximetry Oxygen Delivery Room Air Intake/Output Intake/Output: Intake & Output 08/29/23 08/30/23 08/31/23 09/01/23 23:59 23:59 23:59 23:59 Intake Total 1000 2019 Balance 1000 2019 670 Meds/Results Medications: Active Medications Generic Name Dose Route Start Last Admin Trade Name Freq PRN Reason Stop Dose Admin Acetaminophen 650 mg 08/30/23 00:28 08/30/23 20:56 Acetaminophen 325 Mg Tablet PO 650 mg Q4H PRN Administration Mild Pain (1-3) or Fever Acetaminophen 650 mg 08/30/23 12:01 Acetaminophen 325 Mg Tablet PO Q4H PRN Mild Pain (1-3) or Fever Albuterol 2.5 mg 08/30/23 12:05 Albuterol Sulfate Neb 2.5 Mg/3 Ml Inh INHALATION Q6HRT PRN Shortness Of Breath Amlodipine Besylate 10 mg 08/31/23 09:00 09/01/23 08:59 Amlodipine Besylate 5 Mg Tablet PO 10 mg DAILY JOLEEN Administration Aspirin 81 mg 08/31/23 09:00 09/01/23 09:00 Aspirin 81 Mg Chewable Tablet PO 81 mg DAILY JOLEEN Administration Atorvastatin Calcium 20 mg 08/31/23 09:00 09/01/23 09:00 Yobany
[2023-09-01 14:00] VITALS: BP 129/55; PULSE 82; RESP 16; TEMP 36.6; O2SAT 97
[2023-09-01 20:51] VITALS: BP 130/53; PULSE 108; RESP 18; TEMP 36.6; O2SAT 91
[2023-09-01] MEDS: CIPROFLOXACIN 500 MG TAB PO (20:53)
[2023-09-02 04:43] VITALS: BP 112/58; PULSE 85; RESP 16; TEMP 36.6; O2SAT 93
[2023-09-02 08:14] LABS: Hematocrit 27.8 % (37.0-47.0); Hemoglobin 7.9 g/dL (12.0-15.0); Mean Corpuscular HGB Conc 28.4 g/dl (32-36); Mean Corpuscular Hemoglobin 23.1 pg (26-34); Mean Corpuscular Volume 81.3 fl (80-100); Mean Platelet Volume 8.1 fl (7.4-10.4); Platelet Count Result 523 k/mm3 (150-375); Red Blood Count 3.42 M/mm3 (4.2-5.4); Red Cell Distribution Width 15.1 % (11.5-14.5); White Blood Count 6.7 K/mm3 (4.5-10.0)
[2023-09-02 08:23] LABS: Alanine Aminotransferase 14 U/L (6-35); Albumin Level 2.9 g/dL (3.5-5.1); Alkaline Phosphatase 79 U/L (38-126); Anion Gap 4 mmol/L (8-16); Aspartate Amino Transferase 26 U/L (14-36); Bilirubin,Total 0.3 mg/dL (0.2-1.3); Blood Urea Nitrogen 11 mg/dL (7-17); Calcium 8.5 mg/dL (8.4-10.2); Carbon Dioxide 30 mmol/L (22-30); Chloride 103 mmol/L (98-107); Estimated CRCL calculation 41 ml/min; Estimated Glomerular Filt Rate > 60; Glucose 82 mg/dL (65-110); Potassium 3.6 mmol/L (3.4-5.0); Sodium 137 mmol/L (137-145)
[2023-09-02] MEDS: POTASSIUM CHLORIDE 10 MEQ ER TABLET PO (09:33)
[2023-09-02] MEDS: ASPIRIN 81 MG CHEWABLE TABLET PO (09:33)
[2023-09-02] MEDS: CIPROFLOXACIN 500 MG TAB PO ×2 (09:34→20:19)
[2023-09-02] MEDS: ATORVASTATIN 20 MG TABLET PO (09:34)
--- NOTE | 2023-09-02 11:10 | PM.IMPN ---
Progress Note: A&P Assessment and Plan (1) Acute respiratory failure with hypoxemia: Code(s): J96.01 - Acute respiratory failure with hypoxia Status: Acute (2) RSV infection: Code(s): B33.8 - Other specified viral diseases Status: Acute (3) History of tobacco use: Code(s): Z87.891 - Personal history of nicotine dependence Status: Acute (4) Anemia: Qualifiers: Iron deficiency anemia type: chronic blood loss Code(s): D64.9 - Anemia, unspecified Status: Acute Plan IV fluid resuscitation Repeat CBC CMP CXR reviewed Solitary pulmonary nodule will require follow-up as an outpatient CT in 6 months patient advice to quit smoking. Bronchodilators.? Solu-Medrol Pneumoniae and flu vaccines as advised Pulmonary rehab if indicated. Evaluation for home O2 if saturations less than 88% on room air Follow-up with primary care and office services representative routine ANEMIA Monitor H&H.? 8.0/28.8 stable Discontinued lovenox due to low hemoglobin Anemia of chronic disease Hypokalemia 3.6 replaced on KCl UTI Urine cultures and sensitivity. E coli sensitive ciprofloxacin Continue IV hydration. Noted low blood pressure will discontinue amlodipine Monitor vital signs On antibiotics client services manager consult for placement DVT prophylaxis. SCDs GI prophylaxis. Protonix All records reviewed Discussed plan of care with the nursing staff and with the patient in detail. Answered all questions and concerns from the patient. All labs have been reviewed. Code status updated dictation may have been done utilizing a voice recognition system. Attempts have been made to correct errors. However, there may be uncorrected grammatical, spelling, and recognition errors present. Subjective Date/time seen: 09/02/23 11:10 Interval history: Patient stated he complains still has some weakness Review of Systems Review of Systems: All systems reviewed & are unremarkable except as noted in HPI and below Exam Narrative: GENERAL: Well appearing, no acute distress. HEAD: Normocephalic, atraumatic. NECK: Supple. No adenopathy, no masses. RESPIRATORY: respirations nonlabored. , no rales, wheezing. CARDIOVASCULAR: Regular rate and rhythm without murmurs, . Peripheral pulses 2+ and equal bilaterally. ABDOMINAL: Soft, nontender, nondistended, no hepatosplenomegaly. Normoactive BS. MUSCULOSKELETAL: no Epigastric and no hypochondrial tenderness SKIN: Warm, dry, NEURO: A&O X2. Moves all extremities Objective Data Vital Signs Vital Signs: Vital Signs - 24 hr 09/01/23 14:00 09/01/23 14:00 09/01/23 20:51 Temperature 36.6 C 36.6 C Pulse Rate 82 108 H Respiratory Rate 16 18 Blood Pressure 129/55 L 130/53 L Pulse Oximetry 97 91 Oxygen Delivery Room Air 09/02/23 04:43 Temperature 36.6 C Pulse Rate 85 Respiratory Rate 16 Blood Pressure 112/58 L Pulse Oximetry 93 Oxygen Delivery Intake/Output Intake/Output: Intake & Output 08/30/23 08/31/23 09/01/23 09/02/23 23:59 23:59 23:59 23:59 Intake Total 2019 620 1040 0 Balance 2019 620 1040 0 Meds/Results Medications: Active Medications Generic Name Dose Route Start Last Admin Trade Name Freq PRN Reason Stop Dose Admin Acetaminophen 650 mg 08/30/23 00:28 08/30/23 20:56 Acetaminophen 325 Mg Tablet PO 650 mg Q4H PRN Administration Mild Pain (1-3) or Fever Acetaminophen 650 mg 08/30/23 12:01 Acetaminophen 325 Mg Tablet PO Q4H PRN Mild Pain (1-3) or Fever Albuterol 2.5 mg 08/30/23 12:05 Albuterol Sulfate Neb 2.5 Mg/3 Ml Inh INHALATION Q6HRT PRN Shortness Of Breath Amlodipine Besylate 10 mg 08/31/23 09:00 09/01/23 08:59 Amlodipine Besylate 5 Mg Tablet PO 10 mg DAILY JOLEEN Administration Aspirin 81 mg 08/31/23 09:00 09/02/23 09:33 Aspirin 81 Mg Chewable Tablet PO 81 mg DAILY JOLEEN Administration Atorvastatin Calcium 20 mg 08/31/23 09:00
--- NOTE | 2023-09-02 11:17 | PM.IMPN ---
Subjective Date/time seen: 09/02/23 11:17 Interval history: Patient stated he complains still has some weakness Review of Systems Review of Systems: All systems reviewed & are unremarkable except as noted in HPI and below Exam Narrative: GENERAL: Well appearing, no acute distress. HEAD: Normocephalic, atraumatic. NECK: Supple. No adenopathy, no masses. RESPIRATORY: respirations nonlabored. , no rales, wheezing. CARDIOVASCULAR: Regular rate and rhythm without murmurs, . Peripheral pulses 2+ and equal bilaterally. ABDOMINAL: Soft, nontender, nondistended, no hepatosplenomegaly. Normoactive BS. MUSCULOSKELETAL: no Epigastric and no hypochondrial tenderness SKIN: Warm, dry, NEURO: A&O X2. Moves all extremities Objective Data Vital Signs Vital Signs: Vital Signs - 24 hr 09/01/23 14:00 09/01/23 14:00 09/01/23 20:51 Temperature 36.6 C 36.6 C Pulse Rate 82 108 H Respiratory Rate 16 18 Blood Pressure 129/55 L 130/53 L Pulse Oximetry 97 91 Oxygen Delivery Room Air 09/02/23 04:43 Temperature 36.6 C Pulse Rate 85 Respiratory Rate 16 Blood Pressure 112/58 L Pulse Oximetry 93 Oxygen Delivery Intake/Output Intake/Output: Intake & Output 08/30/23 08/31/23 09/01/23 09/02/23 23:59 23:59 23:59 23:59 Intake Total 2019 620 1040 0 Balance 2019 620 1040 0 Meds/Results Medications: Active Medications Generic Name Dose Route Start Last Admin Trade Name Freq PRN Reason Stop Dose Admin Acetaminophen 650 mg 08/30/23 00:28 08/30/23 20:56 Acetaminophen 325 Mg Tablet PO 650 mg Q4H PRN Administration Mild Pain (1-3) or Fever Acetaminophen 650 mg 08/30/23 12:01 Acetaminophen 325 Mg Tablet PO Q4H PRN Mild Pain (1-3) or Fever Albuterol 2.5 mg 08/30/23 12:05 Albuterol Sulfate Neb 2.5 Mg/3 Ml Inh INHALATION Q6HRT PRN Shortness Of Breath Aspirin 81 mg 08/31/23 09:00 09/02/23 09:33 Aspirin 81 Mg Chewable Tablet PO 81 mg DAILY JOLEEN Administration Atorvastatin Calcium 20 mg 08/31/23 09:00 09/02/23 09:34 Atorvastatin 20 Mg Tablet PO 20 mg DAILY JOLEEN Administration Ciprofloxacin 500 mg 09/01/23 21:00 09/02/23 09:34 Ciprofloxacin 500 Mg Tab PO 500 mg Q12HR JOLEEN Administration Potassium Chloride 10 meq 08/31/23 09:00 09/02/23 09:33 Potassium Chloride 10 Meq Er Tablet PO 10 meq DAILY JOLEEN Administration Telmisartan 20 mg 08/31/23 09:00 09/01/23 09:00 Telmisartan 20 Mg Tablet PO 20 mg DAILY JOLEEN Administration Radiology Results: ITS Impressions Chest X-Ray 08/29/23 22:02 IMPRESSION: Moderate interstitial edema. Groundglass opacity in the right upper lung may represent infection or edema. Atelectasis, consolidation, or aspiration in the left lung base. Labs Labs: Laboratory Results - last 24 hr 09/02/23 08:09 WBC 6.7 RBC 3.42 L Hgb 7.9 L Hct 27.8 L MCV 81.3 MCH 23.1 L MCHC 28.4 L RDW 15.1 H Plt Count 523 H MPV 8.1 Sodium 137 Potassium 3.6 Chloride 103 Carbon Dioxide 30 Anion Gap 4 L BUN 11 Creatinine 0.50 L Estim Creat Clear Calc 41 Estimated GFR > 60 Glucose 82 Calcium 8.5 Total Bilirubin 0.3 AST 26 ALT 14 Alkaline Phosphatase 79 Total Protein 6.0 L Albumin 2.9 L
[2023-09-02 16:00] VITALS: BP 125/82; PULSE 81; O2SAT 93
[2023-09-02 21:29] VITALS: BP 136/70; PULSE 72; RESP 16; TEMP 36.6; O2SAT 95
[2023-09-03 04:26] VITALS: BP 118/58; PULSE 68; RESP 14; TEMP 36.6; O2SAT 97
--- NOTE | 2023-09-03 08:58 | PM.IMPN ---
Progress Note: A&P Assessment and Plan (1) Acute respiratory failure with hypoxemia: Code(s): J96.01 - Acute respiratory failure with hypoxia Status: Acute (2) RSV infection: Code(s): B33.8 - Other specified viral diseases Status: Acute (3) History of tobacco use: Code(s): Z87.891 - Personal history of nicotine dependence Status: Acute (4) Anemia: Qualifiers: Iron deficiency anemia type: chronic blood loss Code(s): D64.9 - Anemia, unspecified Status: Acute Plan IV fluid resuscitation Repeat CBC CMP CXR reviewed Solitary pulmonary nodule will require follow-up as an outpatient CT in 6 months patient advice to quit smoking. Bronchodilators.? Solu-Medrol ANEMIA Monitor H&H.? 8.0/28.8 stable Discontinued lovenox due to low hemoglobin Anemia of chronic disease Hypokalemia 3.6 replaced on KCl UTI Urine cultures and sensitivity. E coli sensitive ciprofloxacin Continue IV hydration. Noted low blood pressure will discontinue amlodipine Monitor vital signs On antibiotics inpatient services director consult for placement DVT prophylaxis. SCDs GI prophylaxis. Protonix All records reviewed Discussed plan of care with the nursing staff and with the patient in detail. Answered all questions and concerns from the patient. All labs have been reviewed. Code status updated dictation may have been done utilizing a voice recognition system. Attempts have been made to correct errors. However, there may be uncorrected grammatical, spelling, and recognition errors present. Subjective Date/time seen: 09/03/23 08:58 Interval history: Patient stated he complains still has some weakness Review of Systems Review of Systems: All systems reviewed & are unremarkable except as noted in HPI and below Exam Narrative: GENERAL: Well appearing, no acute distress. HEAD: Normocephalic, atraumatic. NECK: Supple. No adenopathy, no masses. RESPIRATORY: respirations nonlabored. , no rales, wheezing. CARDIOVASCULAR: Regular rate and rhythm without murmurs, . Peripheral pulses 2+ and equal bilaterally. ABDOMINAL: Soft, nontender, nondistended, no hepatosplenomegaly. Normoactive BS. MUSCULOSKELETAL: no Epigastric and no hypochondrial tenderness SKIN: Warm, dry, NEURO: A&O X2. Moves all extremities Objective Data Vital Signs Vital Signs: Vital Signs - 24 hr 09/02/23 09:30 09/02/23 16:00 09/02/23 21:29 Temperature 36.6 C Pulse Rate 81 72 Respiratory Rate 16 Blood Pressure 125/82 136/70 Pulse Oximetry 93 95 Oxygen Delivery Room Air 09/03/23 04:26 Temperature 36.6 C Pulse Rate 68 Respiratory Rate 14 Blood Pressure 118/58 L Pulse Oximetry 97 Oxygen Delivery Intake/Output Intake/Output: Intake & Output 08/31/23 09/01/23 09/02/23 09/03/23 23:59 23:59 23:59 23:59 Intake Total 620 1040 150 50 Balance 620 1040 150 50 Meds/Results Medications: Active Medications Generic Name Dose Route Start Last Admin Trade Name Freq PRN Reason Stop Dose Admin Acetaminophen 650 mg 08/30/23 00:28 08/30/23 20:56 Acetaminophen 325 Mg Tablet PO 650 mg Q4H PRN Administration Mild Pain (1-3) or Fever Acetaminophen 650 mg 08/30/23 12:01 Acetaminophen 325 Mg Tablet PO Q4H PRN Mild Pain (1-3) or Fever Albuterol 2.5 mg 08/30/23 12:05 Albuterol Sulfate Neb 2.5 Mg/3 Ml Inh INHALATION Q6HRT PRN Shortness Of Breath Aspirin 81 mg 08/31/23 09:00 09/02/23 09:33 Aspirin 81 Mg Chewable Tablet PO 81 mg DAILY JOLEEN Administration Atorvastatin Calcium 20 mg 08/31/23 09:00 09/02/23 09:34 Atorvastatin 20 Mg Tablet PO 20 mg DAILY JOLEEN Administration Ciprofloxacin 500 mg 09/01/23 21:00 09/02/23 20:19 Ciprofloxacin 500 Mg Tab PO 500 mg Q12HR JOLEEN Administration Potassium Chloride 10 meq 08/31/23 09:00 09/02/23 09:33 Potassium Chloride 10 Meq Er Tablet PO 10 meq DAILY JOLEEN Admi
[2023-09-03] MEDS: CIPROFLOXACIN 500 MG TAB PO ×2 (09:05→20:02)
[2023-09-03] MEDS: POTASSIUM CHLORIDE 10 MEQ ER TABLET PO (09:06)
[2023-09-03] MEDS: ATORVASTATIN 20 MG TABLET PO (09:06)
[2023-09-03] MEDS: ASPIRIN 81 MG CHEWABLE TABLET PO (09:06)
[2023-09-03] MEDS: TELMISARTAN 20 MG TABLET PO (09:06)
[2023-09-03 14:02] VITALS: O2SAT 97
[2023-09-03 15:41] VITALS: BP 113/50; PULSE 76; RESP 16; TEMP 36.4; O2SAT 95
[2023-09-03 23:56] VITALS: BP 104/42; PULSE 83; RESP 16; TEMP 36.4; O2SAT 97
[2023-09-04] MEDS: POTASSIUM CHLORIDE 10 MEQ ER TABLET PO (08:59)
[2023-09-04] MEDS: ASPIRIN 81 MG CHEWABLE TABLET PO (08:59)
[2023-09-04] MEDS: ATORVASTATIN 20 MG TABLET PO (09:00)
[2023-09-04] MEDS: CIPROFLOXACIN 500 MG TAB PO ×2 (09:00→20:08)
[2023-09-04] MEDS: TELMISARTAN 20 MG TABLET PO (09:00)
--- NOTE | 2023-09-04 11:02 | PCNFU ---
Nutrition Follow-Up Complete: Severe Protein Calorie Malnutrition as related to inadequate protein-energy intake with increased protein-energy needs in setting of chronic disease (COPD) as evidenced by < 75% of EER for greater than 1 month and weight loss of 18% or (18 ibs) in 6 weeks. Goal: Adequate Intake of at least 75% of meals/supplements - Not meeting goal. Continue with same goal Pt current nutrition Regular diet. Intakes 0-25%. Ensure Enlive BID for additional 350 kcal and 20 g protein each. Nutrition recommendation: Continue with current nutrition care plan and orders. Last recorded weight is 35 kg. Bowel Motility: Last BM charted 09/01/23 Labs Reviewed: No labs since 09/02: Alb 2.9, Cre 0.5 Meds Noted: Rocephin Skin: No pressure related skin breakdown Additional Notes: Pt was eating breakfast when seen. Eating only a few bites. Sipping some Ensure. Continue with liberalized diet and supplements, encourage intakes. RD will monitor weight, labs, skin, meds, oral intake every 3 days.
[2023-09-04 13:29] VITALS: BP 120/75; PULSE 73; RESP 18; TEMP 36.6; O2SAT 95
--- NOTE | 2023-09-04 15:05 | PM.IMPN ---
Progress Note: A&P Assessment and Plan (1) Acute respiratory failure with hypoxemia: Code(s): J96.01 - Acute respiratory failure with hypoxia Status: Acute Assessment and Plan: Improved; no AA (2) RSV infection: Code(s): B33.8 - Other specified viral diseases Status: Acute (3) History of tobacco use: Code(s): Z87.891 - Personal history of nicotine dependence Status: Acute (4) Anemia: Qualifiers: Iron deficiency anemia type: chronic blood loss Code(s): D64.9 - Anemia, unspecified Status: Acute (5) Physical deconditioning: Code(s): R53.81 - Other malaise Status: Acute Plan IV fluid resuscitation Repeat CBC CMP CXR reviewed Solitary pulmonary nodule will require follow-up as an outpatient CT in 6 months patient advice to quit smoking. Bronchodilators.? Solu-Medrol ANEMIA Monitor H&H.? 8.0/28.8 stable Discontinued lovenox due to low hemoglobin Anemia of chronic disease Hypokalemia 3.6 replaced on KCl UTI Urine cultures and sensitivity. E coli sensitive ciprofloxacin Continue IV hydration. 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 SCDs GI prophylaxis. Protonix All records reviewed Discussed plan of care with the nursing staff and with the patient in detail. Answered all questions and concerns from the patient. All labs have been reviewed. Code status updated dictation may have been done utilizing a voice recognition system. Attempts have been made to correct errors. However, there may be uncorrected grammatical, spelling, and recognition errors present. Time Spent With Patient Time with patient: 25 - 35 minutes Subjective Date/time seen: 09/04/23 15:05 Interval history: Poorly interactive; non-verbal Review of Systems Review of Systems: No fevers chills nausea vomiting. No double vision no blurry vision. No chest pain shortness of breath fever coughing wheezing chills. No nausea constipation diarrhea abdominal pain reflux. No urgency frequency of urination. No hematuria. No skin rash eczema. No anxiety depression difficulty sleeping. No bleeding gums enlarged glands. No muscle ache back pain joint stiffness. No loss of strength numbness headache tremor or loss of memory. All systems reviewed & are unremarkable except as noted in HPI and below Exam Narrative: GENERAL: Well appearing, no acute distress. HEAD: Normocephalic, atraumatic. NECK: Supple. No adenopathy, no masses. RESPIRATORY: respirations nonlabored. , no rales, wheezing. CARDIOVASCULAR: Regular rate and rhythm without murmurs, . Peripheral pulses 2+ and equal bilaterally. ABDOMINAL: Soft, nontender, nondistended, no hepatosplenomegaly. Normoactive BS. MUSCULOSKELETAL: no Epigastric and no hypochondrial tenderness SKIN: Warm, dry, NEURO: A&O X2. Moves all extremities Objective Data Vital Signs Vital Signs: Vital Signs - 24 hr 09/03/23 15:41 09/03/23 20:00 09/03/23 23:56 Temperature 97.5 F L 97.5 F L Pulse Rate 76 83 Respiratory Rate 16 16 Blood Pressure 113/50 L 104/42 L Pulse Oximetry 95 97 Oxygen Delivery Room Air 09/04/23 13:29 Temperature 97.9 F Pulse Rate 73 Respiratory Rate 18 Blood Pressure 120/75 Pulse Oximetry 95 Oxygen Delivery Intake/Output Intake/Output: Intake & Output 09/01/23 09/02/23 09/03/23 09/04/23 23:59 23:59 23:59 23:59 Intake Total 1040 150 730 351 Balance 1040 150 730 351 Meds/Results Medications: Active Medications Generic Name Dose Route Start Last Admin Trade Name Freq PRN Reason Stop Dose Admin Acetaminophen 650 mg 08/30/23 00:28 08/30/23 20:56 Acetaminophen 325 Mg Tablet PO 650 mg Q4H PRN Administration Mild Pain (1-3) or Fever Acetaminophen 650 mg 08/30/23 12:01 Acetaminophen 325 Mg Tablet PO Q4H WA
[2023-09-04 19:38] VITALS: BP 111/45; PULSE 87; RESP 16; TEMP 37; O2SAT 96
[2023-09-05 05:44] VITALS: BP 115/52; PULSE 72; RESP 16; TEMP 36.9; O2SAT 98
[2023-09-05 06:25] LABS: Basophils Percent Auto 0.5 % (0.2-1.2); Eosinophils Absolute Auto 0.1 K/mm3 (0-0.3); Eosinophils Percent Auto 1.9 % (0-4.4); Hematocrit 29.1 % (37.0-47.0); Hemoglobin 8.4 g/dL (12.0-15.0); Immature Granulocyte Absolute 0.03 K/mm3 (0.00-0.031); Immature Granulocyte Percent A 0.5 % (0-0.5); Lymphocytes Absolute Auto 1.28 K/mm3 (0.9-3.2); Lymphocytes Percent Auto 20.2 % (18.3-44.2); Mean Corpuscular HGB Conc 28.9 g/dl (32-36); Mean Corpuscular Hemoglobin 23.4 pg (26-34); Mean Corpuscular Volume 81.1 fl (80-100); Mean Platelet Volume 8.5 fl (7.4-10.4); Monocytes Absolute Auto 0.5 K/mm3 (0.1-0.6); Monocytes Percent Auto 8.5 % (2.6-8.5); Neutrophils Absolute Auto 4.4 K/mm3 (1.3-6.7); Neutrophils Percent Auto 68.4 % (45.5-73.1); Platelet Count Result 545 k/mm3 (150-375); Red Blood Count 3.59 M/mm3 (4.2-5.4); Red Cell Distribution Width 15.5 % (11.5-14.5); White Blood Count 6.4 K/mm3 (4.5-10.0)
[2023-09-05 06:35] LABS: Alanine Aminotransferase 12 U/L (6-35); Albumin Level 3.1 g/dL (3.5-5.1); Alkaline Phosphatase 79 U/L (38-126); Anion Gap 4 mmol/L (8-16); Aspartate Amino Transferase 49 U/L (14-36); Bilirubin,Total 0.4 mg/dL (0.2-1.3); Blood Urea Nitrogen 12 mg/dL (7-17); Calcium 8.8 mg/dL (8.4-10.2); Carbon Dioxide 30 mmol/L (22-30); Chloride 103 mmol/L (98-107); Estimated CRCL calculation 41 ml/min; Estimated Glomerular Filt Rate > 60; Glucose 86 mg/dL (65-110); Potassium 3.8 mmol/L (3.4-5.0); Sodium 137 mmol/L (137-145)
[2023-09-05] MEDS: CIPROFLOXACIN 500 MG TAB PO ×2 (09:01→20:09)
[2023-09-05] MEDS: ASPIRIN 81 MG CHEWABLE TABLET PO (09:01)
[2023-09-05] MEDS: TELMISARTAN 20 MG TABLET PO (09:01)
[2023-09-05] MEDS: POTASSIUM CHLORIDE 10 MEQ ER TABLET PO (09:01)
[2023-09-05] MEDS: ATORVASTATIN 20 MG TABLET PO (09:01)
[2023-09-05 13:43] VITALS: BP 116/67; PULSE 76; RESP 20; TEMP 37.1; O2SAT 99
--- NOTE | 2023-09-05 16:15 | PM.DS ---
DS: Admitting Diagnosis Discharge Date 09/05/23 Admitting Diagnosis UTI DS: Summary Hospital Course Hospital Course: Patient is 78-year-old female who presented to the hospital complaining of generalized weakness poor intake patient states she has been coughing for the last few days.? Patient recently had COVID as reported by the family and been feeling weak since then.? Patient got more confused in the last few days and was not eating the patient her to the emergency room for further evaluation.? In the emergency room she was noted to have evidence of positive UA demonstrated UTI with E. coli and Enterococcus; she was adminstered Rocephin, Azithromycin and Ciprofloxacin during this encounter with improved outcomes. she will be discharged today, 09/05/23 on Nitrofurantoin Status at Discharge Overall status at discharge: patient is progressing back to baseline Time Spent with Patient Time attestation: Total time spent providing and/or coordinating discharge services: Time spent: Greater than 30 minutes DS: Data Data Completed and Pending Labs on day of discharge: Labs from last 24 hours 09/05/23 06:05 WBC 6.4 RBC 3.59 L Hgb 8.4 L Hct 29.1 L MCV 81.1 MCH 23.4 L MCHC 28.9 L RDW 15.5 H Plt Count 545 H MPV 8.5 Immature Gran % (Auto) 0.5 Neut % (Auto) 68.4 Lymph % (Auto) 20.2 Hudson % (Auto) 8.5 Eos % (Auto) 1.9 Baso % (Auto) 0.5 Lymph # (Auto) 1.28 Hudson # (Auto) 0.5 Eos # (Auto) 0.1 Baso # (Auto) 0.0 Abs Immat Gran (auto) 0.03 Absolute Neuts (auto) 4.4 Absolute Nucleated RBC 0.0 Nucleated RBC % 0.0 Sodium 137 Potassium 3.8 Chloride 103 Carbon Dioxide 30 Anion Gap 4 L BUN 12 Creatinine 0.50 L Estim Creat Clear Calc 41 Estimated GFR > 60 Glucose 86 Calcium 8.8 Total Bilirubin 0.4 AST 49 H ALT 12 Alkaline Phosphatase 79 Total Protein 6.0 L Albumin 3.1 L Discharge Plan Discharge Attending physician on discharge: Pascual Sykes Discharging Clinician: Pascual Sykes Patient Disposition: SNF Activity: as tolerated Diet: heart healthy Stand Alone Forms: General Discharge Information Discharge Medications: Continued albuterol sulfate 90 mcg/actuation HFA aerosol inhaler 1 - 2 puff inhalation Q4-6H PRN (Reason: shortness of breath or wheezing) Qty: 8.5 2RF donepezil [Aricept] 10 mg tablet 10 mg PO ONCE amlodipine 10 mg tablet 10 mg PO DAILY potassium chloride 10 mEq tablet extended release 10 meq PO DAILY atorvastatin 20 mg tablet 20 mg PO DAILY diphenhydramine HCl [Banophen] 25 mg capsule 25 mg PO HS aspirin 81 mg tablet,chewable 81 mg PO DAILY telmisartan 20 mg tablet 20 mg PO DAILY cholecalciferol (vitamin D3) 125 mcg (5,000 unit) capsule 125 mcg PO DAILY albuterol sulfate 2.5 mg /3 mL (0.083 %) solution for nebulization 2.5 mg INHALATION Q4-6H PRN (Reason: shortness of breath or wheezing) Qty: 180 11RF Rx Instructions: up to three times a day as needed for shortness of breath Brovana 15 mcg/2 mL solution for nebulization 2 ml INHALATION BID Qty: 120 5RF Date of admission: 08/30/23 12:01 Primary Care Provider: Cory Landry Admitting Provider: Jacqueline George Attending physician on admission: Jacqueline George Condition: Stable
[2023-09-05 18:55] LABS: SARS-CoV-2 RNA PCR Negative (Negative)
[2023-09-05 19:44] VITALS: BP 128/68; PULSE 84; RESP 16; TEMP 36.6; O2SAT 97
--- NOTE | 2023-09-05 20:19 | PC.NURSE ---
Spoke with pt's son Flakito to inform of patient's discharge.
--- NOTE | 2023-09-05 20:26 | PC.NURSE ---
Report called to Wanda at [facility], all questions answered. EMS on unit to transport patient.
== END 2023-09-05 20:28 | DRG 193 ==
LOC: ANHED 08-30 00:27 → ANH3MED 08-30 01:06
PROVIDERS: Internal Medicine; Admitting Provider Internal Medicine; Emergency Provider Emergency Medicine; PCP Family Medicine; Visit Provider Internal Medicine
DX: J18.9 Pneumonia, unspecified organism (principal); E43 Unspecified severe protein-calorie malnutrition; J96.01 Acute respiratory failure with hypoxia; N39.0 Urinary tract infection, site not specified; Z68.1 Body mass index [BMI] 19.9 or less, adult; J06.9 Acute upper respiratory infection, unspecified; B97.4 Respiratory syncytial virus as the cause of diseases classified elsewhere; I10 Essential (primary) hypertension; J43.9 Emphysema, unspecified; E78.5 Hyperlipidemia, unspecified; R91.8 Other nonspecific abnormal finding of lung field; F41.9 Anxiety disorder, unspecified; F32.A Depression, unspecified; Z86.718 Personal history of other venous thrombosis and embolism; Z87.891 Personal history of nicotine dependence; D64.9 Anemia, unspecified
CPT/HCPCS: 36415; 71046; 80053; 81001; 83605; 83735; 84145; 84484; 85014; 85018; 85025; 85027; 85610; 85730; 87040; 87635; 87637; 93005; 96361; 96365; 96367; 97161; 97165; 97530; 97535; 99285; A9270; G0378; J0456; J0696; J2930; J7030